=== PATIENT | male | born 1970 | race African-American/Black ===

== ENCOUNTER 2018-11-13 20:38 | Emergency (ER) | payer OTHER ==
[2018-11-13 20:45] VITALS: TEMP 98.6; BMI 28.0
--- NOTE | 2018-11-13 20:47 | PDOC ---
History of Present Illness - General Chief Complaint: Nausea/Vomiting Stated Complaint: NAUSEA/VOMITING Time Seen by Provider: 11/13/18 20:46 - History of Present Illness Initial Comments: 48 year old male with PMH of gallstones presenting with nausea, vomiting, and diarrhea for the past day. He went to urgent care earlier in the day who stated that he needed to follow up at the ED for a high WBC (13, although paper is blurry ) and a high amylase (102 with an ULN of 101). Patient stated that all of his symptoms resolved with Zofran and he has been eating well. 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 He did have a slight fever at as well. Currently completely asymptomatic. Denies chest pain, headache, 11/13/18 21:32 Past History - Past Medical History Allergies/Adverse Reactions: Allergies Allergy/AdvReac Type Severity Reaction Status Date / Time No Known Allergies Allergy Verified 08/05/13 08:28 Home Medications: Ambulatory Orders No Home Medications 0 dose .ROUTE UTDICT 11/10/12 COPD: No - Suicide/Smoking/Psychosocial Hx Smoking Status: No Smoking History: Never smoked Number of Cigarettes Smoked Daily: 0 'Breaking Loose' booklet given: 04/10/15 Hx Alcohol Use: Yes (OCCASIONAL) Substance Use Type: Marijuana Review of Systems - Review of Systems Constitutional: Yes: Chills, Diaphoresis, Fever, Loss of Appetite HEENTM: No: Blurred Vision, Tearing Respiratory: No: Cough, Orthopnea, Shortness of Breath Cardiac (ROS): No: Chest Pain, Edema, Irregular Heart Rate ABD/GI: Yes: Diarrhea, Nausea, Vomiting : No: Dysuria, Discharge, Frequency Integumentary: No: Lesions, Lumps, Pallor Neurological: No: Headache, Numbness, Paresthesia Psychiatric: No: Anxiety, Depression Endocrine: No: Flushing, Intolerance to Heat Hematologic/Lymphatic: No: Blood Clots, Easy Bleeding *Physical Exam - Vital Signs Last Vital Signs Temp Pulse Resp BP Pulse Ox 98.6 F 91 H 18 117/71 94 L 11/13/18 20:42 11/13/18 20:42 11/13/18 20:42 11/13/18 20:42 11/13/18 20:42 - Physical Exam General Appearance: Yes: Nourished, Appropriately Dressed. No: Apparent Distress HEENT: positive: EOMI, WALLY, Normal ENT Inspection Neck: positive: Trachea midline, Normal Thyroid, Supple. negative: Tender, Rigid Respiratory/Chest: positive: Lungs Clear, Normal Breath Sounds. negative: Chest Tender, Respiratory Distress, Accessory Muscle Use Cardiovascular: positive: Regular Rhythm, Regular Rate Gastrointestinal/Abdominal: positive: Normal Bowel Sounds, Flat, Soft. negative : Tender Lymphatic: negative: Adenopathy, Tenderness Musculoskeletal: positive: Normal Inspection Extremity: positive: Normal Capillary Refill, Normal Inspection, Normal Range of Motion. negative: Tender Integumentary: positive: Normal Color, Dry, Warm Neurologic: positive: Fully Oriented, Alert, Normal Mood/Affect, Normal Response , Motor Strength 5/5 Moderate Sedation - Procedure Monitoring Vital Signs: Procedure Monitoring Vital Signs Temperature 98.6 F 11/13/18 20:42 Pulse Rate 91 H 11/13/18 20:42 Respiratory Rate 18 11/13/18 20:42 Blood Pressure 117/71 11/13/18 20:42 O2 Sat by Pulse Oximetry (%) 94 L 11/13/18 20:42 Medical Decision Making - Medical Decision Making 48 year old with nausea,vomiting, and diarrhea which have all resolved on presentation after Zofran use. Labs WNl with exception of dehydration evidenced by elevated BUN and Creatinine. Patient notified of these results and given hydration, follow up, and return precautions. 11/13/18 22:24 *DC/Admit/Observation/Transfer Diagnosis at time of Disposition: Nausea vomiting and diarrhea - Discharge Dispostion Disposition: HOME Condition at time of disposition: Improved Decision to Admit order: No - Referrals Referrals: [facility] [Provider Group] - Patient Instructions Additional Instructions: Your labs showed that you were dehydrated as we discussed. Please drink water and eat soft foods at home. Please use your zofran for your nausea. Please follow up with your PCP as needed and return to the ED if you have any emergent complaints. - Post Discharge Activity
[2018-11-13] MEDS ORDERED: SODIUM CHLORIDE 0.9% 500 ML INFUS.BAG IV ONE (21:15)
--- NOTE | 2018-11-13 21:22 | PDOC ---
Attending Attestation - Resident Resident Name: Melisa Oakes - ED Attending Attestation I have performed the following: I have examined & evaluated the patient, The case was reviewed & discussed with the resident, I agree w/resident's findings & plan - HPI HPI: 11/13/18 21:44 Mr. Ya is a 48 year old male, with past medical history significant for , presents to the emergency department with abdominal pain, nausea, vomiting (non bloody, non bilious) and diarrhea (non bloody). +suspicious food intake of chicken and steak as possible precipitant. The patient states he had labs taken at Urgent Care prior to arrival which noted an amylase lab value of 102 prompting the ED visit. - Physicial Exam PE: 11/13/18 21:44 NAD, well appearing, PERRL, EOMI, MMM, nl conjunctiva, anicteric; neck supple. lungs clear, RRR, abdomen soft mildly diffuse periumbilical tenderness; no rebound or guarding. AVITIA x4, no focal neuro deficits. No peripheral edema. normal color for ethnicity, WWP. - Medical Decision Making 11/13/18 21:45 See HPI for details ddx. pancreatitis, hepatitis, electrolyte/metabolic derangements, dehydration, colitis, AGE, food poisoning. Vital signs reviewed, wnl on recheck, no respiratory distress or hypoxia. no fever. tolerating PO intake Prior notes reviewed, including admissions, discharges and consultations. laboratory results and imaging reviewed, basic labs and lytes wnl, normal lipase /LFTs. Cr and BUN mildly elevated, likely from dehydration. pt can tolerate PO and feels well, nontoxic. amylase nonspecific, not checked abdomen soft, benign PO challenged supportive care, hydration. prn zofran to help with taking PO dc in stable condition. avoid triggers. 11/13/18 22:19 11/13/18 22:20
[2018-11-13 21:48] LABS: BASO % 0.2 % (0-2.0); EOS % 0.5 % (0-4.5); HEMATOCRIT 44.6 % (35.4-49); HEMOGLOBIN 15.7 GM/dL (11.7-16.9); LYMPH % 5.7 % (8-40); MCH 31.9 pg (25.7-33.7); MCHC 35.1 g/dl (32.0-35.9); MEAN CELL VOLUME 90.9 fl (80-96); MONO % 5.3 % (3.8-10.2); NEUT % 88.3 % (42.8-82.8); PLATELET COUNT 248 K/MM3 (134-434); RBC 4.91 M/mm3 (4.00-5.60); RDW 14.4 % (11.9-15.9); WHITE BLOOD COUNT 9.4 K/mm3 (4.0-10.0)
[2018-11-13 22:16] LABS: ALBUMIN 3.8 g/dl (3.4-5.0); ALK PHOS 88 U/L (45-117); AMYLASE 104 U/L (25-115); ANION GAP 8 MMOL/L (8-16); BILIRUBIN,TOTAL 0.6 mg/dL (0.2-1); BLOOD UREA NITROGEN 20 mg/dL (7-18); CALCIUM 8.8 mg/dL (8.5-10.1); CHLORIDE 102 mmol/L (98-107); CO2 27 mmol/L (21-32); CREATININE 1.5 mg/dL (0.55-1.3); GLUCOSE,RANDOM 108 mg/dL (74-106); LIPASE 254 U/L (73-393); POTASSIUM 3.8 mmol/L (3.5-5.1); SGOT/AST 21 U/L (15-37); SGPT/ALT 56 U/L (13-61); SODIUM 137 mmol/L (136-145)
[2018-11-13 22:32] VITALS: BP 120/69; PULSE 75
== END 2018-11-13 22:35 | disposition home or self-care (01) ==
LOC: JER 20:38
DX: B34.9 Viral infection, unspecified (principal)
CPT/HCPCS: 36415; 80053; 82150; 83690; 85025; 99282-25

== ENCOUNTER 2024-07-18 13:52 | Emergency (ER) | payer OTHER ==
[2024-07-18 13:58] VITALS: BP 123/71; PULSE 62; RESP 18; TEMP 97.9; BMI 30.1
[2024-07-18 14:37] LABS: BASO % 0.7 % (0-2.0); HEMATOCRIT 45.9 % (35.4-49); HEMOGLOBIN 15.1 GM/dL (11.7-16.9); LYMPH % 27.9 % (8-40); MCH 30.1 pg (25.7-33.7); MEAN CELL VOLUME 91.3 fl (80-96); MEAN PLT VOLUME 6.7 fl (7.5-11.1); MONO % 7.1 % (3.8-10.2); NEUT % 63.3 % (42.8-82.8); PLATELET COUNT 300 10^3/uL (134-434); RBC 5.03 M/mm3 (4.00-5.60); RDW 14.4 % (11.9-15.9); WHITE BLOOD COUNT 5.3 K/mm3 (4.0-10.0)
[2024-07-18 14:41] LABS: EPI CELLS 3 /uL (0-25.1); HYALINE CASTS 0 /uL (0-3.1); PH,URINE 5.5 (5.0-8.0); URINE APPEARANCE CLEAR; URINE BACTERIA 4 /uL (0-1359); URINE BILIRUBIN NEGATIVE (NEGATIVE); URINE COLOR ORANGE; URINE GLUCOSE (UA) NEGATIVE (NEGATIVE); URINE KETONE NEGATIVE (NEGATIVE); URINE LEUK ESTERASE TRACE (NEGATIVE); URINE NITRITE NEGATIVE (NEGATIVE); URINE PROTEIN NEGATIVE (NEGATIVE); URINE RBC 2469 /uL (0-23.9); URINE UROBILINOGEN 0.2 mg/dL (0.2-1.0); URINE WBC 62 /uL (0-25.8)
[2024-07-18] MEDS: SODIUM CHLORIDE 0.9% 1000 ML INFUS.BAG IV ONE (14:53)
[2024-07-18] MEDS: ONDANSETRON 4 MG/2 ML VIAL IVPUSH ONE (14:54)
[2024-07-18 14:56] LABS: POTASSIUM 4.6 mmol/L (3.5-5.1)
[2024-07-18 14:58] LABS: ALBUMIN 4.1 g/dl (3.4-5.0); BLOOD UREA NITROGEN 11.5 mg/dL (7-18); CALCIUM 8.8 mg/dL (8.5-10.1)
[2024-07-18 15:02] LABS: CREATININE 1.3 mg/dL (0.55-1.3)
[2024-07-18 15:03] LABS: BILIRUBIN,TOTAL 0.3 mg/dL (0.2-1); TOT PROT 7.2 g/dl (6.4-8.2)
[2024-07-18 15:56] LABS: HIV INTERPRETATION NEGATIVE (NEGATIVE)
== END 2024-07-18 17:17 | disposition home or self-care (01) ==
LOC: JER 13:52
DX: R31.9 Hematuria, unspecified (principal)
CPT/HCPCS: 36415; 80053; 80307; 81003; 85025; 86803; 87389; 99283-25